=== PATIENT | male | born 1945 | race Caucasian/White ===

== ENCOUNTER 2022-09-16 08:15 | Outpatient (CLI) | payer MEDICARE, OTHER, SELFPAY ==
--- NOTE | ~2022-09-16 | XR_ITS ---
MODIFIED ESOPHAGRAM HISTORY: Dysphagia. TECHNIQUE: Modified barium esophagram was performed by speech pathologist under radiologist fluorosco pic guidance. This was recorded on tape. The exam was reviewed on 09/16/2022 14:18 SCIENTIFIC HELPER. The DAP fo r this procedure was 0.81 Gycm2. Fluoroscopy time is 0.9 minutes. FINDINGS: Lateral projection of the cervical spine demonstrates normal alignment. There is normal s wallowing function. There is residue in the vallecula and piriform sinus. No evidence for laryngeal p enetration or aspiration.. IMPRESSION: 1: No evidence for laryngeal penetration or aspiration. 2: Please refer to speech pathologist report for additional detail. Reviewed, dictated and finalized at location A. NTIFIC HELPER
--- NOTE | 2022-09-16 12:02 | REHSTMBS ---
Assessment and note entered by Giuliana Ivy, EGG TESTER Modified Barium Swallow Evaluation Feeding Type Recommended Oral Food Consistency Regular, Level 7 Liquid Consistency Thin (0) ST Clinical Summary MODIFIED BARIUM SWALLOW This patient was seen for an outpatient Modified Barium Swallow at the request of his physician. He reports that he has had random difficulty swallowing characterized as a feeling that there is residue in his throat after swallow and when he double swallows, it does not clear but eventually it will fall down and be swallowed later. He reports this is a random occurrence but then also stated that it seems to be happening more frequently. He denied symptoms of reflux but stated that his physician recently placed him on reflux medicine. Patient was viewed in the lateral position to the level of C5/C6. He was presented with graduated amounts of thin liquid contrast medium, pudding mixed with semi-solid contrast medium, and fruit and syrup and terri cracker piece coated with the semi-solid mixture. He exhibited quick swallows with increased vallecular residue and pyriform sinus residue noted after larger bites and sips, clearing with secondary swallows. Results indicate this patient's swallowing skills are grossly within normal limits. It is possible that pharyngeal residue is enough to cause the symptoms of which the patient complains. He was instructed in use of safe swallowing strategies and gastroesophageal reflux guidelines to follow that may contribute to reducing the patient's complaints. No further Speech Therapy is indicated. Thank you for this referral.
== END 2022-09-16 08:16 | disposition home or self-care (01) ==
PROVIDERS: PCP Internal Medicine; Visit Provider Otolaryngology
DX: R13.10 Dysphagia, unspecified (principal)
CPT/HCPCS: 92611

== ENCOUNTER 2022-09-25 11:16 | Outpatient (CLI) | payer MEDICARE, OTHER, SELFPAY ==
[2022-09-25 11:59] LABS: Anion Gap 6 mmol/L (8-16); Blood Urea Nitrogen 19 mg/dL (9-20); Calcium 8.6 mg/dL (8.4-10.2); Carbon Dioxide 29 mmol/L (22-30); Chloride 101 mmol/L (98-107); Estimated Glomerular Filt Rate > 60; Glucose 111 mg/dL (65-110); Sodium 136 mmol/L (137-145)
== END 2022-09-25 11:17 | disposition home or self-care (01) ==
PROVIDERS: Anesthesiology; PCP Internal Medicine; Visit Provider Otolaryngology
DX: E11.9 Type 2 diabetes mellitus without complications (principal)
CPT/HCPCS: 36415; 80048

== ENCOUNTER 2022-10-01 07:55 | Day surgery (SDC) | payer MEDICARE, OTHER, SELFPAY ==
[2022-09-17 14:25] VITALS: BMI 29.5
--- NOTE | 2022-09-17 14:46 | PC.NURSE ---
PRE-OP INSTRUCTIONS, PLEASE READ CAREFULLY Report to the Outpatient Waiting Room, entrance under the green pavilion located off [facility], at time _1230_ on date _10/01/22_. Planned Procedure Time: _2:30 PM_. Time changes happen often and if your time is changed the preop area will call you the afternoon before. - You and your visitor will be asked to self-screen and do not enter if you have any COVID symptoms. - Only one visitor is requested with a max of two and NO children visitors are allowed at this time. - The patient visitor may be requested to leave or wait in car when not with patient due to distancing restrictions. - A mask is required within the hospital. Patients may have clear liquids (water, carbonated beverages, clear teas, apple juice) until 3 hours prior to surgery (1130 AM) with a maximum of 20 ounces. - No food from midnight until time of surgery Take the following medications with a SIP of water the morning of surgery: _NONE_ Medications to discontinue __ASPIRIN PER DR. AMADOR'S INSTRUCTIONS__ Please no make-up, nail kittitian, hairspray, perfume, deodorant, or body powder the day of surgery. No jewelry (including any body piercings) or valuables the day of surgery, leave them at home. Please take a shower or bath the night before, or the morning of, surgery with an antibacterial soap. Wear comfortable, loose fitting clothing. - Jewelry must be removed prior to entering the operating room. Rings and piercings that are not removed may be cut off. - The hospital will not accept responsibility for valuables. - Please leave all valuables, including medications, at home the day of surgery. If you are going home after surgery, a licensed stake driver must drive you home. - NO public transportation without another adult if you receive anesthesia. - We recommend that an adult stay with you for 24 hours following discharge. - We also recommend that you do not drive, make important decision, drink alcoholic beverages, or take any drugs that were not prescribed by your health care provider for at least 24 hours after your discharge time. Follow any additional instructions given to you from your surgeon. If you or anyone in your household have experienced Covid symptoms in the past week, please notify your surgeon or the nurse liaison at the phone number below for possible testing. Telephone instructions given to _PATIENT_and asked if any additional questions and then verbalized understanding. Patient advised to call surgeon office or pre surgery nurse liaison [phone] if any additional questions.
--- NOTE | 2022-09-30 13:53 | P.HP_ITS ---
H&P: HPI History of Present Illness Date/Time: 09/30/22 13:53 Chief Complaint: Tongue base lesion, dysphagia Narrative: planned surgical procedure Review of Systems Review of Systems: All systems reviewed & are unremarkable except as noted in HPI and below [facility] Social History Social History (Updated 09/09/22 @ 09:06 by Erika Contreras [facility]) Smoking status: Former smoker Tobacco type: cigars Second hand tobacco smoke exposure: No Smoking end date: 09/29/69 Alcohol intake: never Substance use: never Substance use type: does not use Lack of Transportation: No Lack of Food: Never True Current Housing: I Have Housing Concerned About Future Housing: No Difficulty Paying Gas/Electric Bills: No Difficulty Paying for Meds: No Currently Unemployed: No Education: High School Diploma/GED Difficulty w/ Childcare or Family Care: No Spiritual care concerns: No Meds Home Medications and Allergies Home Medications Medication Instructions Recorded Confirmed Type aspirin 81 mg tablet,delayed 81 mg PO DAILY 08/31/20 09/17/22 History release (Adult Low Dose Aspirin) chlorthalidone 25 mg tablet 25 mg PO DAILY 08/31/20 09/17/22 History rosuvastatin 5 mg tablet 5 mg PO DAILY 08/31/20 09/17/22 History omeprazole 20 mg capsule,delayed 20 mg PO DAILY #14 caps 09/09/22 09/17/22 Rx release metformin 500 mg tablet 500 mg QAM 09/17/22 09/17/22 History Allergies Allergy/AdvReac Type Severity Reaction Status Date / Time No Known Allergies Allergy Verified 09/17/22 14:23 Exam Narrative: normal Assessment and Plan Assessment and plan (1) 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 Risks were discussed including bleeding infection dysphagia need for further procedures low risk of failure to diagnose any neoplasm. Bleeding. TMJ damage to dentition damage to mandible.
[2022-10-01] VITALS (8 sets, daily range): BP systolic 125–153; BP diastolic 63–104; PULSE 66–90; RESP 14–18; TEMP 36.3–37.1; O2SAT 96–100
--- NOTE | 2022-10-01 07:17 | WPDHPUPDATE1 ---
History and Physical Update Update Date/Time: 10/01/22 07:17 History and Physical has been reviewed, including an updated exam of the patient. There are NO changes in the patient's condition. Risks, benefits, and alternatives have been discussed and questions answered. Patient agrees to proceed with procedure.
--- NOTE | 2022-10-01 10:08 | P.PNAN_ITS ---
Anes - Initial Pre Proc Eval Procedure: Operation Date: 10/01/22 10:30 Proposed Procedures p Direct Laryngoscopy with Biopsy Base of Tongue Lesion - Nba Garzon MD Date/Time: 10/01/22 10:08 Surgeon: Nba Garzon MD Pre Op Diagnosis: Base of Tongue Lesion Patient Data Age: 77 Gender: M Height: 1.96 m Weight: 112.72 kg Allergies Allergy/AdvReac Type Severity Reaction Status Date / Time No Known Allergies Allergy Verified 10/01/22 10:46 Home Medications Medication Instructions Recorded Confirmed Type aspirin 81 mg tablet,delayed 81 mg PO DAILY 08/31/20 09/17/22 History release (Adult Low Dose Aspirin) chlorthalidone 25 mg tablet 25 mg PO DAILY 08/31/20 09/17/22 History rosuvastatin 5 mg tablet 5 mg PO DAILY 08/31/20 09/17/22 History omeprazole 20 mg capsule,delayed 20 mg PO DAILY #14 caps 09/09/22 09/17/22 Rx release metformin 500 mg tablet 500 mg QAM 09/17/22 09/17/22 History Patient hx anesthesia problems: none Family hx anesthesia problems: none Results Review: All pre-operative results and documents have been reviewed as part of the pre- operative evaluation. [facility] Past Medical History Medical History (Updated 10/01/22 @ 10:10 by Denny Wiggins MD) CAD (coronary artery disease) Chronic GERD Diabetes HTN (hypertension) Hx of myocardial infarction Hyperlipidemia Melanoma Osteoarthritis Surgical History Surgical History (Updated 10/01/22 @ 10:10 by Denny Wiggins MD) History of coronary artery stent placement Social History Social History (Updated 09/09/22 @ 09:06 by Erika Contreras CMA) Smoking status: Former smoker Tobacco type: cigars Second hand tobacco smoke exposure: No Smoking end date: 09/29/69 Alcohol intake: never Substance use: never Substance use type: does not use Lack of Transportation: No Lack of Food: Never True Current Housing: I Have Housing Concerned About Future Housing: No Difficulty Paying Gas/Electric Bills: No Difficulty Paying for Meds: No Currently Unemployed: No Education: High School Diploma/GED Difficulty w/ Childcare or Family Care: No Living arrangements: with family Spiritual care concerns: No Anes - Eval Final PreProcedure Day of Procedure 10/01/22 10:08 Patient weight: obese Heart: regular rate and rhythm Lungs: clear to auscultation and normal air movement Airway: Mallampati scale class II Neurological: alert and oriented Last oral intake: >/= 8 hours ASA classification: III Emergent: no Anesthetic plan: proceed Anesthesia type and monitoring: general GIVS and ETT Results Review: All pre-operative results and documents have been reviewed as part of the pre- operative evaluation. Informed Consent: The patient's anesthetic plan and its attendant risks and benefits were discussed with the patient/family/POA. Questions were solicited and answers provided to the satisfaction of the patient/family/POA.
[2022-10-01 10:46] LABS: Glucose Point of Care 113 mg/dl (65-105)
[2022-10-01] MEDS: LACTATED RINGERS 1,000 ML 30 ML IV CONT (10:51)
[2022-10-01] MEDS: OXYMETAZOLINE HCL 0.05% NAS 15 ML BTL (*BKC) 1 SPRAY XX (13:38)
--- NOTE | 2022-10-01 14:07 | W.PM.PROC2 ---
Procedure Note - Detailed Date of Procedure 10/01/22 Pre-op Diagnosis Base of Tongue Lesion Post-op Diagnosis Same Procedure Performed Direct laryngoscopy biopsy tongue base lesion Surgeon Nba Garzon MD Anesthesia General Indications see above Findings tongue base lesion after biopsy consistent with cyst tongue base cyst versus vallecular cyst Description of Procedure patient identified consent verified. Patient brought operating room. Time-out performed. General anesthesia induced endotracheal tube secured airway. Patient prepped draped position 2nd time-out performed. Bed rotated. Laryngoscope placed in the airway following placement of maxillary tooth mouth guard. Tongue base brought into view. Odd smells shape midline slightly the right tongue base lesion present biopsied with up-biting forceps under endoscopic guidance after the laryngoscope was placed in suspension. Cyst like contents mucus came out of the cyst. Minimal bleeding Afrin-soaked pledget placed against the stent removed. Patient tolerated the procedure well. Laryngoscope removed taken out of suspension maxillary tooth mouth guard removed. Afrin-soaked pledget removed. Care the patient given Anesthesiology. I performed all dictated portions of procedure. Blood loss essentially 0. Patient taken to PACU Estimated Blood Loss -1.0 Drains No Packing No Pathology Yes Complications No immediate complications Condition Stable Disposition PACU
[2022-10-01 14:13] LABS: Glucose Point of Care 97 mg/dl (65-105)
== END 2022-10-01 15:36 | disposition home or self-care (01) ==
PROVIDERS: PCP Internal Medicine; Visit Provider Otolaryngology
PROC: 0CJS8ZZ Inspection of Larynx, Via Natural or Artificial Opening Endoscopic (ICD-10-PCS; CPT 42808; principal; 2022-10-01 10:30)
DX: J38.7 Other diseases of larynx (principal); E11.9 Type 2 diabetes mellitus without complications; I10 Essential (primary) hypertension; I25.2 Old myocardial infarction; E78.5 Hyperlipidemia, unspecified; I25.10 Atherosclerotic heart disease of native coronary artery without angina pectoris; K21.9 Gastro-esophageal reflux disease without esophagitis; Z95.5 Presence of coronary angioplasty implant and graft; E66.9 Obesity, unspecified; Z68.29 Body mass index [BMI] 29.0-29.9, adult; Z87.891 Personal history of nicotine dependence; Z79.84 Long term (current) use of oral hypoglycemic drugs; Z79.82 Long term (current) use of aspirin
CPT/HCPCS: 42808; 82948; 88305; A9270; J0330; J1100; J2405; J2704; J2710; J3010; J7120

== ENCOUNTER 2024-10-09 07:57 | Emergency (ER) | payer MEDICARE, OTHER, SELFPAY ==
[2024-10-09] VITALS (7 sets, daily range): BP systolic 124–169; BP diastolic 69–77; PULSE 62–78; RESP 16–20; TEMP 36.6; O2SAT 97–99
--- NOTE | ~2024-10-09 | CT_ITS ---
EXAMINATION: CT brain wo con DATE: 10/09/2024 12:26 INDICATION: Falls TECHNIQUE: Computed tomography (CT) of the head was performed without intravenous contrast. The mA wa s adjusted according to patient size. Iterative reconstruction technique was employed. Exam dose: 68 1.00 mGy-cm total exam DLP. COMPARISON: None FINDINGS: No intracranial mass lesion or hemorrhage or cerebrovascular accident. No midline shift or mass effect. Bilateral vertebral artery and carotid siphon internal carotid artery calcifications. There is nonspe cific diminished attenuation the cerebral white matter, likely due to chronic small vessel ischemic c hanges, likely unremarkable for age. Normal ventricular size. No subdural or epidural hematoma is detected. The orbits are unremarkable. The mastoid air cells and paranasal sinuses are normally developed and aerated. No fracture or bone destruction of the cranial vault. IMPRESSION: No skull fracture or acute intracranial finding Reviewed, dictated and finalized at [facility]. Reviewed, dictated and finalized at [facility]. NATOR
--- NOTE | ~2024-10-09 | XR_ITS ---
XR chest 1V portable DATE: 10/09/2024 11:36 INDICATION: 2 syncopal episodes in August. Dizzy episodes. TECHNIQUE: Portable upright AP chest on 10/09/2024 at 1132 COMPARISON: None FINDINGS: Normal heart size. Aortic arch calcification, mild aortic unfolding. No hilar or mediastina l enlargement. No pulmonary infiltrate or consolidation, pleural effusion or pulmonary vascular congestion or pneumo thorax. Osteopenia. Degenerative spurring of the thoracic spine. IMPRESSION: No active cardiopulmonary disease Reviewed, dictated and finalized at [facility]. [facility]
--- NOTE | 2024-10-09 11:16 | ECG_ITS ---
Test Date: 2024-10-09 11:48:49 Measurements Intervals [place] Rate: 63 P: 8 [place]: 189 QRS: -36 QRSD: 101 T: -3 QT: 424 QTc: 437 Interpretive Statements SINUS RHYTHM LEFT AXIS DEVIATION [QRS AXIS < -30] PATTERN CONSISTENT WITH PULMONARY DISEASE NONSPECIFIC T-WAVE ABNORMALITY ABNORMAL ECG No previous ECG available for comparison Electronically Signed On 10-09-2024 17:38:19 ELECTRONIC CONTROLS REPAIRER SUPERVISOR by Acosta Oakes M.D.
--- NOTE | 2024-10-09 11:26 | ED_ITS ---
HPI - Fall General Chief Complaint: Dizziness Stated Complaint: fall couple times , hit head Time Seen by Provider: 10/09/24 11:12 History of Present Illness HPI Narrative: 79-year-old male with a past medical history including hypertension, hyperlipidemia, previous coronary disease with single stent 9 years prior. Patient presents to the emergency room today with a chief complaint of dizziness. He states that when he gets up suddenly he gets a room spinning sensation especially when he changes position suddenly. He has to get his balance before he is able walk short distance. Denies any chest pain shortness a breath with the symptoms. Denies any symptoms at rest. Does state that he has fallen several times over last few months with head injuries. Did not take anything besides a baby aspirin for anticoagulation. No blood thinners. He is awake alert oriented as baseline mentation, denies any symptoms at rest. Ambulates with a steady gait, no ataxia. Symptoms ongoing for several weeks but he states he has a longstanding history of ?dizziness. Related Data Home Medications ?Medication ?Instructions ?Recorded ?Confirmed ?Last Taken ?Type aspirin 81 mg tablet,delayed 81 mg PO DAILY 08/31/20 09/17/22 Unknown History release (Adult Low Dose Aspirin) chlorthalidone 25 mg tablet 25 mg PO DAILY 08/31/20 09/17/22 Unknown History rosuvastatin 5 mg tablet 5 mg PO DAILY 08/31/20 09/17/22 Unknown History metformin 500 mg tablet 500 mg QAM 09/17/22 09/17/22 Unknown History Allergies Allergy/AdvReac Type Severity Reaction Status Date / Time No Known Allergies Allergy Verified 10/09/24 08:21 Review of Systems 2 Review of Systems: As reviewed above in HPI [facility] Past Medical History Medical History Melanoma Diabetes Osteoarthritis Chronic GERD Hx of myocardial infarction Hyperlipidemia HTN (hypertension) CAD (coronary artery disease) Surgical History Surgical History History of coronary artery stent placement Social History Social History Smoking status: Former smoker Tobacco type: cigars Second hand tobacco smoke exposure: No Smoking end date: 09/29/69 Alcohol intake: never Substance use: never Substance use type: does not use Lack of Transportation: No Lack of Food: Never True Current Housing: I Have Housing Concerned About Future Housing: No Difficulty Paying Gas/Electric Bills: No Difficulty Paying for Meds: No Currently Unemployed: No Education: High School Diploma/GED Difficulty w/ Childcare or Family Care: No Living arrangements: with family Spiritual care concerns: No Exam 2 Narrative: GENERAL: [Well-appearing, well-nourished, and in no acute distress.] HEAD: [Normocephalic, atraumatic.] EYES: [PERRLA and EOMI.] ENT: Nares clear, no rhinorrhea or epistaxis. Mucous membranes moist. NECK: Supple. CHEST: [Clear to auscultation. No respiratory distress.] HEART: [Regular rate and rhythm]. No murmur heard. [Normal peripheral pulses.] ABDOMEN: [Soft, nondistended], [nontender], [No rigidity or guarding] EXTREMITIES: Normal range of motion. [No edema.] SKIN: Warm, dry, no rash. NEURO: [No focal deficits]. Alert and oriented [x3.] No ataxia in the arms or legs, no facial asymmetries, pupils are equal reactive to light, full strength and sensation throughout both arms and legs, stroke scale 0. PSYCH: [Normal mood and affect.] Course Vital Signs Vital signs: Vital Signs Temperature 36.6 C 10/09/24 08:10 Pulse Rate 71 10/09/24 08:10 Respiratory Rate 18 10/09/24 08:10 Blood Pressure 160/70 H 10/09/24 08:10 Pulse Oximetry 99 10/09/24 08:10 Oxygen Delivery Room Air 10/09/24 08:10 Temperature 36.6 C 10/09/24 08:10 Pulse Rate 78 10/09/24 12:29 Respiratory Rate 18 10/09/24 11:37 Blood Pressure 124/76 10/09/24 12:29 Pulse Oximetry 99 10/09/24 11:37 Oxygen Delivery Room Air 10/09/24 08:10 MDM - Fall MDM Narrative Medical decision making narrative: 79-year-old male with history of coronary disease with stent, hypertension, hyperlipidemia. Presents with ?dizziness ?. Patient states he has had multiple falls over the past few weeks from dizziness when he suddenly changes position or stands up suddenly. He states his symptoms are not present at rest any denies any chest pain, shortness a breath, nausea, vomiting, abdominal pain, back pain or any other symptoms aside from the dizziness. Presently states he has a minor headache. Has fallen several times with head trauma these past few weeks. Only takes aspirin. He is slightly hypertensive with a blood pressure 160/70 otherwise no tachycardia, fever, hypoxia. Considerations presently for orthostasis, positional vertigo or other peripheral vertigo that is more likely benign nature. He has no symptoms at rest and a nonfocal neurological assessment making central vertigo over and likely. His recurrent falls also raise suspicion for potential intracranial process. CT of the head was obtained as well as cardiac workup including troponin, EKG, chest x-ray, electrolyte panel. He was given fluid bolus and a trial of meclizine with reassessment thereafter. Workup shows no leukocytosis or significant anemia. Normal platelet level. Chemistry panel without any significant derangements. Normal renal function, normal hepatic function. Electrolytes largely unremarkable. Troponin is negative. Urinalysis without infection. Head CT shows no acute intracranial process. Chest x-ray with no active cardiopulmonary disease. Patient was re-evaluated and had symptomatic improvement after the meclizine therapy. He felt improved and was stable for discharge at this time. He will be given ear nose and throat referral as well as a course of meclizine for p.r.n. dizziness. Patient was given strict return precautions and verbalized understanding. He was safely discharged at this time. Medical Records Attestation: I reviewed the patient's medical records. Lab Data Attestation: I reviewed the patient's lab results. 10/09/24 14:02 10/09/24 11:55 Labs: Lab Results 10/09/24 10/09/24 10/09/24 Range/Units 11:42 11:55 12:39 WBC (4.5-10.0) K/mm3 RBC (4.6-6.20) M/mm3 Hgb (14.0-18.0) g/dL Hct (42.0-52.0) % MCV (80-100) fl MCH (26-34) pg MCHC (32-36) g/dl RDW (11.5-14.5) % Plt Count (150-375) k/mm3 MPV (7.4-10.4) fl Immature Gran % (Auto) (0-0.5) % Neut % (Auto) (45.5-73.1) % Lymph % (Auto) (18.3-44.2) % [place] % (Auto) (2.6-8.5) % Eos % (Auto) (0-4.4) % Baso % (Auto) (0.2-1.2) % Lymph # (Auto) (0.9-3.2) K/mm3 [place] # (Auto) (0.1-0.6) K/mm3 Eos # (Auto) (0-0.3) K/mm3 Baso # (Auto) (0.0-0.1) K/mm3 Abs Immat Gran (auto) (0.00-0.031) K/mm3 Absolute Neuts (auto) (1.3-6.7) K/mm3 Absolute Nucleated RBC (0.0-0.012) K/mm3 Nucleated RBC % (0.0-0.2) % PT 13.5 (11.1-14.7) Seconds INR 1.0 APTT 24.9 (22.3-36.8) Seconds Sodium 131 L (137-145) mmol/L Potassium 4.6 (3.4-5.0) mmol/L Chloride 100 (98-107) mmol/L Carbon Dioxide 22 (22-30) mmol/L Anion Gap 9 (4-12) mmol/L BUN 19 (9-20) mg/dL Creatinine 0.73 (0.7-1.3) mg/dL Estim Creat Clear Calc 77 ml/min Estimated GFR > 60 (59 - ) Glucose 98 (65-110) mg/dL POC Capillary Glucose 106 H (65-105) mg/dl Calcium 9.5 (8.4-10.2) mg/dL Magnesium 2.1 (1.6-2.3) mg/dL Total Bilirubin 0.9 (0.2-1.3) mg/dL AST 26 (17-59) U/L ALT 14 (6-50) U/L Alkaline Phosphatase 86 (38-126) U/L Troponin I < 0.012 (0.000-0.034) ng/mL Total Protein 7.0 (6.3-8.2) g/dL Albumin 4.1 (3.5-5.1) g/dL Urine Color Yellow (Yellow) Urine Appearance Clear (Clear) Urine pH 5.5 (5.0-9.0) Ur Specific [place] 1.016 (1.001-1.035) Urine Protein Negative (Negative) mg/dL Urine Glucose (UA) Negative (Negative) mg/dL Urine Ketones Negative (Negative) mg/dL Ur Blood (Man) Negative (Negative) Urine Nitrate Negative (Negative) Urine Bilirubin Negative (Negative) Urine Urobilinogen 1.0 (<2.0) mg/dL Leukocyte Esterase Rfl Negative (Negative) ALE/UL 10/09/24 Range/Units 14:02 WBC 9.9 (4.5-10.0) K/mm3 RBC 4.48 L (4.6-6.20) M/mm3 Hgb 13.7 L (14.0-18.0) g/dL Hct 40.3 L (42.0-52.0) % MCV 90.0 (80-100) fl MCH 30.6 (26-34) pg MCHC 34.0 (32-36) g/dl RDW 11.9 (11.5-14.5) % Plt Count 257 (150-375) k/mm3 MPV 9.6 (7.4-10.4) fl Immature Gran % (Auto) 0.3 (0-0.5) % Neut % (Auto) 76.9 H (45.5-73.1) % Lymph % (Auto) 14.9 L (18.3-44.2) % [place] % (Auto) 7.3 (2.6-8.5) % Eos % (Auto) 0.2 (0-4.4) % Baso % (Auto) 0.4 (0.2-1.2) % Lymph # (Auto) 1.47 (0.9-3.2) K/mm3 [place] # (Auto) 0.7 H (0.1-0.6) K/mm3 Eos # (Auto) 0.0 (0-0.3) K/mm3 Baso # (Auto) 0.0 (0.0-0.1) K/mm3 Abs Immat Gran (auto) 0.03 (0.00-0.031) K/mm3 Absolute Neuts (auto) 7.6 H (1.3-6.7) K/mm3 Absolute Nucleated RBC 0.000 (0.0-0.012) K/mm3 Nucleated RBC % 0.0 (0.0-0.2) % PT (11.1-14.7) Seconds INR APTT (22.3-36.8) Seconds Sodium (137-145) mmol/L Potassium (3.4-5.0) mmol/L Chloride (98-107) mmol/L Carbon Dioxide (22-30) mmol/L Anion Gap (4-12) mmol/L BUN (9-20) mg/dL Creatinine (0.7-1.3) mg/dL Estim Creat Clear Calc ml/min Estimated GFR (59 - ) Glucose (65-110) mg/dL POC Capillary Glucose (65-105) mg/dl Calcium (8.4-10.2) mg/dL Magnesium (1.6-2.3) mg/dL Total Bilirubin (0.2-1.3) mg/dL AST (17-59) U/L ALT (6-50) U/L Alkaline Phosphatase (38-126) U/L Troponin I (0.000-0.034) ng/mL Total Protein (6.3-8.2) g/dL Albumin (3.5-5.1) g/dL Urine Color (Yellow) Urine Appearance (Clear) Urine pH (5.0-9.0) Ur Specific [place] (1.001-1.035) Urine Protein (Negative) mg/dL Urine Glucose (UA) (Negative) mg/dL Urine Ketones (Negative) mg/dL Ur Blood (Man) (Negative) Urine Nitrate (Negative) Urine Bilirubin (Negative) Urine Urobilinogen (<2.0) mg/dL Leukocyte Esterase Rfl (Negative) ALE/UL Imaging Data Attestation: I personally reviewed and interpreted this imaging study as follows: My impression: Impressions Chest X-Ray 10/09/24 11:50 IMPRESSION: No active cardiopulmonary disease Head CT 10/09/24 12:45 IMPRESSION: No skull fracture or acute intracranial finding Discharge Plan Discharge Clinical Impression: Vertigo, Benign paroxysmal positional vertigo Patient Disposition: Home, Self-Care Condition: Stable Instructions: Antibiotic Form, Benign Paroxysmal Positional Vertigo (ED), Dizziness (ED) Additional Instructions: Your examination and workup was very reassuring, your symptoms have been controlled here in the emergency depart with medications which we will send you home with. We have referred you to an speech and hearing director for continued evaluation on outpatient basis. Return if you have any new or worsening symptoms, persistent dizziness, or any other concerns. Patient Language: [place] Prescriptions: New meclizine 25 mg tablet 25 mg PO TID PRN (Reason: dizziness) 10 Days Qty: 30 0RF No Action chlorthalidone 25 mg tablet 25 mg PO DAILY rosuvastatin 5 mg tablet 5 mg PO DAILY aspirin [Adult Low Dose Aspirin] 81 mg tablet,delayed release (DR/EC) 81 mg PO DAILY omeprazole 20 mg capsule,delayed release(DR/EC) 20 mg PO DAILY Qty: 14 0RF Rx Instructions: Take around supper time metformin 500 mg tablet 500 mg QAM Follow-up/Referrals: Gael Merlos MD [Physician] - 1 Week (Peripheral vertigo) Jaimie,Cruz Sow MD [Primary Care Provider] - Time of Disposition: 13:36
[2024-10-09 11:52] LABS: Glucose Point of Care 106 mg/dl (65-105)
[2024-10-09 12:14] LABS: Prothrombin Time 13.5 Seconds (11.1-14.7)
[2024-10-09 12:15] LABS: Partial Thromboplastin Time 24.9 Seconds (22.3-36.8)
[2024-10-09 12:28] LABS: Alanine Aminotransferase 14 U/L (6-50); Albumin Level 4.1 g/dL (3.5-5.1); Alkaline Phosphatase 86 U/L (38-126); Anion Gap 9 mmol/L (4-12); Aspartate Amino Transferase 26 U/L (17-59); Bilirubin,Total 0.9 mg/dL (0.2-1.3); Blood Urea Nitrogen 19 mg/dL (9-20); Calcium 9.5 mg/dL (8.4-10.2); Carbon Dioxide 22 mmol/L (22-30); Chloride 100 mmol/L (98-107); Estimated CRCL calculation 77 ml/min; Estimated Glomerular Filt Rate > 60; Glucose 98 mg/dL (65-110); Magnesium 2.1 mg/dL (1.6-2.3); Potassium 4.6 mmol/L (3.4-5.0); Sodium 131 mmol/L (137-145)
[2024-10-09] MEDS: SODIUM CHLORIDE 0.9% IV 1,000 ML 999 ML IV CONT (12:37)
[2024-10-09] MEDS: MECLIZINE HCL 25 MG TABLET PO (12:37)
[2024-10-09 12:38] LABS: Troponin I < 0.012 ng/mL (0.000-0.034)
[2024-10-09 12:45] LABS: Add Urine Microscopic? NO; Appearance Urine Clear (Clear); Bilirubin Urine Negative (Negative); Blood Urine Negative (Negative); Color Urine Yellow (Yellow); Glucose Urine UA Negative (Negative); Ketones Urine Negative (Negative); Leukocyte Esterase Ur Negative LEU/UL (Negative); Nitrate Urine Negative (Negative); Protein Urine Negative (Negative); Specific Grav Ur 1.016 (1.001-1.035); pH Urine 5.5 (5.0-9.0)
[2024-10-09 14:07] LABS: Basophils Percent Auto 0.4 % (0.2-1.2); Eosinophils Percent Auto 0.2 % (0-4.4); Hematocrit 40.3 % (42.0-52.0); Hemoglobin 13.7 g/dL (14.0-18.0); Immature Granulocyte Absolute 0.03 K/mm3 (0.00-0.031); Immature Granulocyte Percent A 0.3 % (0-0.5); Lymphocytes Absolute Auto 1.47 K/mm3 (0.9-3.2); Lymphocytes Percent Auto 14.9 % (18.3-44.2); Mean Corpuscular Hemoglobin 30.6 pg (26-34); Mean Platelet Volume 9.6 fl (7.4-10.4); Monocytes Absolute Auto 0.7 K/mm3 (0.1-0.6); Monocytes Percent Auto 7.3 % (2.6-8.5); Neutrophils Absolute Auto 7.6 K/mm3 (1.3-6.7); Neutrophils Percent Auto 76.9 % (45.5-73.1); Platelet Count Result 257 k/mm3 (150-375); Red Blood Count 4.48 M/mm3 (4.6-6.20); Red Cell Distribution Width 11.9 % (11.5-14.5); White Blood Count 9.9 K/mm3 (4.5-10.0)
== END 2024-10-09 14:35 | disposition home or self-care (01) ==
PROVIDERS: Emergency Provider Student in an Organized Health Care Education/Training Program; PCP Internal Medicine
DX: H81.10 Benign paroxysmal vertigo, unspecified ear (principal); I10 Essential (primary) hypertension; E78.5 Hyperlipidemia, unspecified; I25.10 Atherosclerotic heart disease of native coronary artery without angina pectoris; Z79.82 Long term (current) use of aspirin; E11.9 Type 2 diabetes mellitus without complications; I25.2 Old myocardial infarction; Z85.820 Personal history of malignant melanoma of skin; Z87.891 Personal history of nicotine dependence
CPT/HCPCS: 36415; 70450; 71045; 80053; 81003; 82948; 83735; 84484; 85025; 85610; 85730; 93005; 96360; 99284; A9270; J7030

== ENCOUNTER 2025-02-14 12:30 | Outpatient (RCR) | payer MEDICARE, OTHER, SELFPAY ==
--- NOTE | 2024-11-29 09:48 | OPREHPOC ---
Outpatient Therapy Plan of Care This is a Multidisciplinary Plan of Care that may contain components documented by all disciplines (PT, OT, and ST.) PT Problem 1 PT Problem #1 Knowledge Deficit PT Goal 1 Goal / Goal Update *indep with HEP Target Visit 6 PT Problem 2 PT Problem #2 Impaired Vestibular System PT Goal 1 Goal / Goal Update *improve vestibular system: pt perform without any issues: 1* sit/stand transfer 2* supine/sit transfer 3* rolling in bed 4* pick something up off floor Target Visit 6
--- NOTE | 2024-11-29 09:48 | PTOPEVAL1 ---
Assessment and note entered by Ying Zapata, PT Evaluation Information Assessment Status Evaluation ICD-10 Condition Codes (PT) Dizziness and Giddiness R42,BPPV H81.12 Onset August 2024 Subjective Information In August had dizziness; have had 2 falls--one with trying to help and both fell; dizziness with fall in September to ER with head wound; had this a few years ago, had therapy for BPPV and it cleared up; this time is worse than in the past. activity: indep with home and self care tasks; assists with caring for his . symptoms: head spinning; wobbly when walking increase: sit to stand have to wait 10-15 seconds to clear, sit to lie down, roll in bed, supine to sitting up; bending forward, moving quick No issues with hearing, vision with glasses; HTN and diabetes under control with meds. 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 He has had issues with vertigo in the past, and has had 2 recent falls, one with head contusion. He is active at home and assists with the care of his . Dizziness handicap index rating of 26% limitation in activity level. With the evaluation, he was positive for R anterior/posterior canal BPPV. Eply performed with good clearing. Education to pt on vestibular system and BPPV. Skilled PT services are indicated for vestibular therapy treatment, BPPV maneuvers to decrease vestibular symptoms and improve mobility skills, with education for safety and self care. Plan of Care Interventions Neuro Re-education,Patient/Caregiver Education, Therapeutic Activities,Therapeutic Exercise PT Services Indicated Yes Treatment Frequency and 1x/wk for 6 visits Duration These treatments will address the objective and functional deficits as defined above. The patient will be advanced safely and appropriately in order for the patient to progress towards his/her prior level of function. Additional exercises will be introduced and as well as a comprehensive home exercise program upon discharge, if needed, to ensure carryover of functional gains achieved in the clinic. This treatment plan has been reviewed and agreement upon by the patient.
--- NOTE | 2025-01-03 14:56 | OPREHPOC ---
Outpatient Therapy Plan of Care This is a Multidisciplinary Plan of Care that may contain components documented by all disciplines (PT, OT, and ST.) PT Problem 1 PT Problem #1 Knowledge Deficit PT Goal 1 Goal / Goal Update *indep with HEP 01-03-25 progress goal met continue to progress education Target Visit 12 PT Problem 2 PT Problem #2 Impaired Vestibular System PT Goal 1 Goal / Goal Update *improve vestibular system: pt perform without any issues: 1* sit/stand transfer 2* supine/sit transfer 3* rolling in bed 4* pick something up off floor 01-03-25 progress goal 4 met; #3 partially met- sometimes an issue continue towards goals Target Visit 12
--- NOTE | 2025-01-03 14:57 | PTOPPROG ---
Assessment and note entered by Ying Zapata, PT Assessment Status Progress ICD-10 Condition Codes (PT) Dizziness and Giddiness R42,BPPV H81.12 Onset August 2024 Subjective Information less issues, but still there; some days go about 1/2 day and not have any dizziness; is not taking the meclazine anymore- script is out symptoms: little spinning and top heavy, like going to fall forward clear symptoms: 30 seconds from initial change and still there with walking, but is less increase symptoms: when lying back in recliner, sit up and sit to standing; when first get up out of bed in AM; sometimes when rolling around in bed; Assessment PT Clinical Summary Hiren has received a total of 6 PT sessions for vestibular therapy. Compared to the initial evaluation: he reports less symptoms, but continues to have dizziness and off balance. He is no longer taking the Meclazine; Dizziness Handicap Index score from 26 to % limitation in activity level. With reaching to floor, no longer has dizziness increase; rolling in bed improved to sometimes causes dizziness; The provoking symptoms continue to be lying down to sitting up and sit to stand, easing in about 20 -30 seconds of holding position. The goals were partially met. continue PT treatment for vestibular/ BPPV anterior-posterior canal on R and balance retraining for safety with mobility. Plan of Care Interventions Neuro Re-education,Patient/Caregiver Education, Therapeutic Activities,Therapeutic Exercise PT Services Indicated Yes Treatment Frequency and 1x/wk for 6 visits Duration These treatments will address the objective and functional deficits as defined above. The patient will be advanced safely and appropriately in order for the patient to progress towards his/her prior level of function. Additional exercises will be introduced and as well as a comprehensive home exercise program upon discharge, if needed, to ensure carryover of functional gains achieved in the clinic. This treatment plan has been reviewed and agreement upon by the patient.
--- NOTE | 2025-02-14 13:11 | OPREHPOC ---
Outpatient Therapy Plan of Care This is a Multidisciplinary Plan of Care that may contain components documented by all disciplines (PT, OT, and ST.) PT Problem 1 PT Problem #1 Knowledge Deficit PT Goal 1 Goal / Goal Update *indep with HEP 01-03-25 progress goal met continue to progress education 02-14-25 d/c goal met Target Visit 12 Progress Met PT Problem 2 PT Problem #2 Impaired Vestibular System PT Goal 1 Goal / Goal Update *improve vestibular system: pt perform without any issues: 1* sit/stand transfer 2* supine/sit transfer 3* rolling in bed 4* pick something up off floor 01-03-25 progress goal 4 met; #3 partially met- sometimes an issue continue towards goals 02-14-25 d/c goals not met, less symptoms with activities- no longer room spinning ; is now light headed, wobbly Target Visit 12 Progress Partially Met
--- NOTE | 2025-02-14 13:11 | PTOPDC ---
Assessment and note entered by Ying Zapata, PT Assessment Status Discharge ICD-10 Condition Codes (PT) Dizziness and Giddiness R42,BPPV H81.12 Onset August 2024 Subjective Information no longer have room spinning feelings, now top heavy, light headed, stagger when walking; have these feelings with standing up from chair, rolling in bed, lying down to sitting up; eases if I hold still for about 5- 10 seconds and it goes away. doing better; am not taking meclazine; doing all the exercises at home; Reported Pain Level Pain Score 1: Self Report Additional Pain Score Comments little pain in neck Assessment PT Clinical Summary Hiren has received a total of 12 PT sessions. He continues to report light headed, off balance, wobbly symptoms, NO longer has room spinning sensations; is able to perform eye tracking and oculomotor exercises without any symptoms; self assessment with Dizziness Handicap index rating of 8% limitation in activity level; education for HEP and safety awareness with mobility. He has not had any falls. The goals were partially met. Discharge PT services. He is to continue with his HEP and safety with mobility, monitoring BP as needed. Plan of Care PT Services Indicated No
== END 2025-02-14 14:49 | disposition home or self-care (01) ==
LOC: ANHPT 12:30
PROVIDERS: PCP Internal Medicine; Visit Provider Otolaryngology
DX: H81.12 Benign paroxysmal vertigo, left ear (principal)
CPT/HCPCS: 95992; 97110; 97112; 97161; 97530